=== PATIENT | male | born 1975 ===

== ENCOUNTER → 2017-11-24 | Day surgery (SDC) | payer BC ==
[2017-11-18 13:18] VITALS: BMI 30.3
[~2017-11-24] MED LIST: HYDROmorphone 0.5 mg/0.5 ml ISec IVP PRN; Lactated Ringer's 1,000 ML IV SCH; Lidocaine Hydrochloride 20 ML INJ ONE; Midazolam 2 MG/2 ML VIAL ONE; Oxycodone/Acetaminophen 5/325 mg Tab PO ONE; Propofol 10 mg/ml Inj (20 ML) ONE
--- NOTE | 2017-11-24 09:41 | PCM.SURG1 ---
Surgeon's Initial Post Op Note - Surgeon's Notes Surgeon: Dr. Moseley Compugraph Operator: PGY1 Pre-Operative Diagnosis: bilateral upper extremity and right lower extremity soft tissue masses; Angiolipoma Operative Findings: Multiple small tissue masses, one RUE forearm partially involving vein. for details see op note Post-Operative Diagnosis: as above Operation Performed: excision of bilateral upper extremity, and right lower extremity soft tissue masses Specimen/Specimens Removed: RUE x2, LUE x2, RLE x1 Estimated Blood Loss: EBL {In ML}: 10 Post-Op Condition: Good Date of Surgery/Procedure: 11/24/17 Time of Surgery/Procedure: 09:41
[2017-11-24 11:28] VITALS: BP 114/74; PULSE 75; RESP 15; TEMP 97.7; O2SAT 100
--- NOTE | 2017-11-27 00:59 | OP ---
PROCEDURE DATE: 11/24/2017 SURGEON: Preeti Moseley MD CYCLE CONSULTANT: Dr. Bradley. ANESTHESIA: IV sedation with local. DESCRIPTION OF OPERATION: With the patient in the supine position and having received IV sedation, the left upper extremity was prepped and draped in the usual sterile manner. The patient was noted to have 2 soft tissue masses overlying the deltoid portion of the left upper extremity, and the skin overlying the more superior mass was infiltrated with 1% lidocaine. A transverse incision was made, taken down into the skin. Upon cutting through the full thickness of skin, there was noted to be what appeared to be a venous malformation with large spider vein like formation lying above the subcutaneous layer. This was dissected free of the overlying skin, and 2 feeding vessels were clamped, divided, and ligated with 4-0 Vicryl ties, and the intervening tissue was excised and sent as specimen. This procedure was continued for a second location of just inferior on the left arm, and any case the skin was then closed with 4-0 Vicryl and Steri-Strips. The right upper extremity and right thigh were then prepped and draped, and a similar lesion was identified on the volar surface of the right arm. The overlying skin was infiltrated with 1% lidocaine, and a superficial transverse incision was made allowing a small venous malformation to be sharply dissected free from the overlying skin. Feeding venous vessels were clamped, divided and then ligated with 4-0 Vicryl ties. A similar lesion was identified on the right forearm, and this too was infiltrated with 1% lidocaine, and a transverse incision was made. The mass was dissected free of the overlying skin and clamped at the base and ligated with 4-0 Vicryl as the mass was excised. Fifth lesion had been marked on the anterior right thigh and in this location as well, a 1% lidocaine was infiltrated. A transverse incision was made. A small mass with appearance of a dilated vein or venous malformation was dissected free of the overlying skin and elevated to expose a feeding vessel, which was clamped, divided and ligated with 4-0 Vicryl, and each specimen was sent separately for pathology. Each incision was closed with running subcuticular suture of 4-0 Monocryl and Steri-Strips. Dry sterile dressings were applied. The patient tolerated the procedure well and transferred to recovery room in stable condition. Estimated blood loss for the procedure was 10 mL. Preeti Moseley MD [facility] # [id number]
== END | disposition home or self-care (01) ==
LOC: C.SDS 06:14
PROVIDERS: ATTEND Specialist
DX: D18.01 Hemangioma of skin and subcutaneous tissue (principal)
CPT/HCPCS: 11406; 88307; 88342; J2250; J2704; J3010